=== PATIENT | male | born 1970 | race African-American/Black ===

== ENCOUNTER 2019-03-21 18:35 | Emergency (ER) | payer OTHER ==
[~2019-03-21] VITALS: Ht 177.8 cm; Wt 127.0 kg
[~2019-03-21 18:35] MED LIST: CATAPRES0.2 MG PO; LISINOPRIL10 MG PO; NAPROSYN500 MG PO; NORCO 5-325 TA1 EACH PO; TIZANIDINE HCL4 MG PO
[2019-03-21 19:09] LABS: URINE BILIRUBIN NEGATIVE (Negative); URINE BLOOD TRACE (Negative); URINE CLARITY CLEAR; URINE COLOR YELLOW; URINE GLUCOSE-RANDOM* 3+ (Negative); URINE KETONES TRACE (Negative); URINE LEUKOCYTES-REFLEX NEGATIVE (Negative); URINE NITRITE-REFLEX NEGATIVE (Negative); URINE PROTEIN (DIPSTICK) 1+ (Negative); URINE SPECIFIC GRAVITY 1.025 (1.005-1.035); URINE UROBILINOGEN 0.2 E.U./dl (0.2-1.0)
[2019-03-21 19:23] LABS: CASTS None Seen /LPF (None Seen); CRYSTALS None Seen /LPF (None Seen); SQUAMOUS None Seen /LPF (0-3)
[2019-03-21 19:24] LABS: BACTERIA-REFLEX 1-9 Few /HPF (None Seen); URINE RBC 0-2 Rare /HPF (0-2); URINE WBC-REFLEX None Seen /HPF (0-5)
[2019-03-21 19:50] LABS: CALCIUM 9.4 mg/dL (8.5-10.1); CREATININE 1.3 mg/dL (0.7-1.3); POTASSIUM 4.2 mmol/L (3.5-5.1)
[2019-03-21 19:51] LABS: ABSOLUTE NEUTROPHILS 3.7 thou/uL (1.4-8.2); HEMATOCRIT 43.1 % (42.0-52.0); LYMPHOCYTES 40.5 % (24.0-44.0); MCH 26.8 pg (26.0-34.0); MCHC 34.7 g/dL (28.0-37.0); MCV 77.3 fL (80.0-100.0); MONOCYTES 8.2 % (1.0-8.0); POLYS 48.3 % (36.0-66.0); RBC 5.58 mil/uL (4.50-6.00); RDW 14.8 % (10.5-14.5); WBC 8.1 thou/uL (4.0-11.0)
[2019-03-21] MEDS ORDERED: PRINIVIL20 MG PO (22:37)
[2019-03-21] MEDS ORDERED: METFORMIN HCL500 MG PO (22:37)
[2019-03-21 22:58] VITALS: BP 167/104
== END 2019-03-21 22:59 | disposition home or self-care (01) ==
LOC: ER 18:35
PROVIDERS: Emergency Medicine
DX: I10 Essential (primary) hypertension (principal); E11.9 Type 2 diabetes mellitus without complications; J45.909 Unspecified asthma, uncomplicated